=== PATIENT | female | born 1950 | race American Indian/Alaskan Native ===

== ENCOUNTER 2018-09-17 17:50 | Emergency (ER) | payer MEDICARE, OTHER ==
--- NOTE | 2018-09-17 18:17 | Emergency Department Report ---
Chief Complaint: Extremity Injury, Upper Stated Complaint: L ELBOW PAIN Time Seen by Provider: 09/17/18 18:14 - HPI History of Present Illness: pt states she fell while getting out of the car at a parking garage at 5 PM states she fell onto her left elbow pt states she previously dislocated this elbow in 2017 PMHx HTN pt states she has a medication allergy to penicillin and codeine non smoker occ drinker MSE screening note: Focused history and physical exam performed. Due to findings the following was ordered: XR left elbow ED Disposition for MSE Condition: Stable
--- NOTE | 2018-09-17 19:29 | XRay Report ---
PROCEDURE: XR ELBOW 3+V LT TECHNIQUE: 3 views of the left elbow obtained. HISTORY: fall, left elbow pain, hx of elbow dislocation COMPARISONS: None FINDINGS: Moderate soft tissue swelling seen over the ulnar sided soft tissues of the left elbow. No gross acute fracture or dislocation visualized. IMPRESSION: No gross acute fracture or dislocation visualized.. This document is electronically signed by Kylah Carrillo MD., Sep 17 2018 07:27:15 PM ET
[2018-09-17 20:42] VITALS: BP 132/84
[2018-09-17] MEDS ORDERED: NORCO 5/325 PO ONE (21:22)
--- NOTE | 2018-09-17 21:29 | Emergency Department Report ---
HPI - General Chief Complaint: Extremity Injury, Upper Time Seen by Provider: 09/17/18 18:14 - [facility] HPI: Room 3 The patient is a 68-year-old female presenting with a chief complaint of left elbow pain. The patient states this evening at 17:00 while walking she lost her footing and fell landing on her left elbow. Patient complains of pain in the left elbow and his score of 6/10. Patient denies loss of consciousness. Patient denies any other pain Location: Left elbow Duration: [See above] Quality: Pain Severity: 6/10 Modifying factors: [see above] Context: [see above] Mode of transportation: [not driving] ED Past Medical Hx - Past Medical History Previous Medical History?: Yes Additional medical history: Breast CA status post mastectomy in - Surgical History Past Surgical History?: Yes Additional Surgical History: Breast augmentation - Family History Family history: no significant - Social History Smoking Status: Never Smoker Substance Use Type: Alcohol (occasional) - Medications Home Medications: Home Medications Medication Instructions Recorded Confirmed Last Taken Type HYDROcodone/APAP 5-325 [[place] 1 - 2 each PO Q6HR PRN #10 tablet 09/17/18 Unknown Rx 5/325] Ibuprofen [Motrin 800 MG tab] 800 mg PO Q8HR PRN #20 tablet 09/17/18 Unknown Rx ED Review of Systems ROS: Stated complaint: L ELBOW PAIN Other details as noted in HPI Constitutional: no symptoms reported Eyes: denies: eye pain ENT: denies: throat pain Respiratory: no symptoms reported Cardiovascular: denies: chest pain Endocrine: no symptoms reported Gastrointestinal: denies: abdominal pain Genitourinary: denies: dysuria Musculoskeletal: arthralgia Neurological: denies: headache Physical Exam - Physical Exam Vital Signs: Vital Signs 09/17/18 09/17/18 18:14 20:40 Temperature 98.2 F 98.4 F Pulse Rate 83 87 Respiratory 18 15 Rate Blood Pressure 134/78 Blood Pressure 132/84 [Right] O2 Sat by Pulse 97 95 Oximetry Physical Exam: GENERAL: The patient is well-developed well-nourished female lying on stretcher favoring left upper extremity but not appearing to be in acute distress. [] HEENT: Normocephalic. Atraumatic. Extraocular motions are intact. Patient has moist mucous membranes. NECK: Supple. Trachea midline CHEST/LUNGS:There is no respiratory distress noted. HEART/CARDIOVASCULAR: Regular. There is no tachycardia. 2+ left radial pulse SKIN: There is no rash. There is mild edema to the left elbow. There is no diaphoresis. NEURO: The patient is awake, alert, and oriented. The patient is cooperative. The patient has no focal neurologic deficits. The patient has normal speech MUSCULOSKELETAL: There is tenderness to palpation of the olecranon. ED Course Vital Signs 09/17/18 09/17/18 18:14 20:40 Temperature 98.2 F 98.4 F Pulse Rate 83 87 Respiratory 18 15 Rate Blood Pressure 134/78 Blood Pressure 132/84 [Right] O2 Sat by Pulse 97 95 Oximetry ED Medical Decision Making - Radiology Data Radiology results: report reviewed (left elbow x-ray), image reviewed (left elbow x-ray) interpreted by me: Left elbow x-ray-no acute fracture seen [facility] [address] [place] [address] XRay Report Signed Patient: TAMARA VÁZQUEZ MR#: [id number] 73 : 1950 Acct:[id number] Age/Sex: 68 / F ADM Date: 09/17/18 Loc: ED Attending Dr: Ordering Physician: RADHA LOPEZ Date of Service: 09/17/18 Procedure(s): XR elbow 3+V LT Accession Number(s): [id number] cc: RADHA LOPEZ Fluoro Time In Minutes: PROCEDURE: XR ELBOW 3+V LT TECHNIQUE: 3 views of the left elbow obtained. HISTORY: fall, left elbow pain, hx of elbow dislocation COMPARISONS: None FINDINGS: Moderate soft tissue swelling seen over the ulnar sided soft tissues of the left elbow. No gross acute fracture or dislocation visualized. IMPRESSION: No gross acute fracture or dislocation visualized.. This document is electronically signed by Prabhu Flores MD., Sep 17 2018 07:27:15 PM ET Transcribed By: KEISHA Dictated By: PRABHU FLORES Electronically Authenticated By: PRABHU FLORES Signed Date/Time: 09/17/181928 DD/ 57 TD/TT: 09/17/181858 - Differential Diagnosis olecranon fracture, elbow dislocation, elbow contusion Critical care attestation.: If time is entered above; I have spent that time in minutes in the direct care of this critically ill patient, excluding procedure time. ED Disposition Clinical Impression: Left elbow contusion Disposition: TO HOME OR SELFCARE Is pt being admited?: No Does the pt Need Aspirin: No Condition: Stable Additional Instructions: Return to the emergency department immediately should you develop worsening symptoms, fever, inability to tolerate food or liquid or any other concerns. Prescriptions: Ibuprofen [Motrin 800 MG tab] 800 mg PO Q8HR PRN #20 tablet PRN Reason: Pain, Moderate (4-6) HYDROcodone/APAP 5-325 [[place] 5/325] 1 - 2 each PO Q6HR PRN #10 tablet PRN Reason: Pain Referrals: DHEERAJ RUEDA JR, MD [Primary Care Provider] - 3-5 Days CALLUM OJEDA MD [Staff Physician] - 3-5 Days (Dr. Ojeda is an orthopedic surgeon. Please follow with him for further evaluation) Time of Disposition: 21:37
== END 2018-09-17 22:45 | disposition home or self-care (01) ==
LOC: ED 17:50
DX: S50.02XA Contusion of left elbow, initial encounter (principal); Z88.5 Allergy status to narcotic agent; Z88.0 Allergy status to penicillin; W01.0XXA Fall on same level from slipping, tripping and stumbling without subsequent striking against object, initial encounter; Y93.89 Activity, other specified; Y92.89 Other specified places as the place of occurrence of the external cause; Y99.8 Other external cause status